=== PATIENT | male | born 1970 | race Caucasian/White ===

== ENCOUNTER 2019-04-04 14:34 | Emergency (ER) | payer OTHER ==
[2019-04-04 14:41] VITALS: TEMP 98.6
[2019-04-04] MEDS ORDERED: SODIUM CHLORIDE 0.9% 1,000 ML IV ONE (14:57)
--- NOTE | 2019-04-04 14:57 | ED ---
General Adult HPI - General Source: patient, EMS, RN notes reviewed, old records reviewed Mode of arrival: EMS Limitations: no limitations <Spike Cadena - Last Filed: 04/04/19 14:55> <Rl Lemus - Last Filed: 04/05/19 00:41> - General Chief complaint: Psychiatric Symptoms Stated complaint: Etoh Time Seen by Provider: 04/04/19 14:37 - History of Present Illness Initial comments: 48-year-old male presents for evaluation of alcohol intoxication and homicidal ideation. Patient was dropped off by his at [facility] for alcohol rehabilitation. Patient's is angry with his and states he would like to kill her. He denies suicidal ideation. He is clinically intoxicated at the time my evaluation. He does admit to drinking alcohol. He has no physical complaints. He was ejected from [facility] because he did not have his home medications. (Spike Cadena) - Related Data Allergies Allergy/AdvReac Type Severity Reaction Status Date / Time No Known Allergies Allergy Verified 04/04/19 15:29 Review of Systems ROS Other: All systems not noted in ROS Statement are negative. <Spike Cadena - Last Filed: 04/04/19 14:55> ROS Other: All systems not noted in ROS Statement are negative. <Rl Lemus - Last Filed: 04/05/19 00:41> ROS Statement: Those systems with pertinent positive or pertinent negative responses have been documented in the HPI. Past Medical History Past Medical History: Hypertension History of Any Multi-Drug Resistant Organisms: None Reported Additional Past Surgical History / Comment(s): eye surgery Past Psychological History: Anxiety, Depression Smoking Status: Never smoker Past Alcohol Use History: Abuse, Daily, Heavy Past Drug Use History: None Reported <Spike Cadena - Last Filed: 04/04/19 14:55> General Exam Limitations: no limitations General appearance: alert, in no apparent distress, appears intoxicated Head exam: Present: atraumatic, normocephalic Eye exam: Present: normal appearance, PERRL ENT exam: Present: normal exam Neck exam: Present: normal inspection. Absent: tenderness, meningismus Respiratory exam: Present: normal lung sounds bilaterally. Absent: respiratory distress, wheezes Cardiovascular Exam: Present: regular rate, normal rhythm GI/Abdominal exam: Present: soft. Absent: distended, tenderness Extremities exam: Present: normal inspection. Absent: normal capillary refill, pedal edema Neurological exam: Present: alert, oriented X3, CN II-XII intact. Absent: motor sensory deficit Psychiatric exam: Present: depressed, flat affect, homicidal ideation Skin exam: Present: warm, dry, intact. Absent: cyanosis, diaphoretic <Spike Cadena [place] - Last Filed: 04/04/19 14:55> General appearance: alert, in no apparent distress Head exam: Present: atraumatic, normocephalic, normal inspection Eye exam: Present: normal appearance, PERRL, EOMI. Absent: scleral icterus, conjunctival injection, periorbital swelling ENT exam: Present: normal exam, mucous membranes moist Neck exam: Present: normal inspection. Absent: tenderness, meningismus, lymphadenopathy Respiratory exam: Present: normal lung sounds bilaterally. Absent: respiratory distress, wheezes, rales, rhonchi, stridor Cardiovascular Exam: Present: regular rate, normal rhythm, normal heart sounds. Absent: systolic murmur, diastolic murmur, rubs, gallop, clicks GI/Abdominal exam: Present: soft, normal bowel sounds. Absent: distended, tenderness, guarding, rebound, rigid Extremities exam: Present: normal inspection, full ROM, normal capillary refill. Absent: tenderness, pedal edema, joint swelling, calf tenderness Back exam: Present: normal inspection Neurological exam: Present: alert, oriented X3, CN II-XII intact Psychiatric exam: Present: normal affect, normal mood Skin exam: Present: warm, dry, intact, normal color. Absent: rash <Rl Lemus - Last Filed: 04/05/19 00:41> Course <Rl Lemus - Last Filed: 04/05/19 00:41> Vital Signs 04/04/19 04/04/19 04/04/19 14:36 15:08 16:14 Temperature 98.6 F Pulse Rate 84 83 81 Respiratory 18 18 16 Rate Blood Pressure 162/111 149/107 151/94 O2 Sat by Pulse 97 95 95 Oximetry - Reevaluation(s) Reevaluation #1: 04/05/19 00:39 seen and evaluated by phych, ok for discharge (Rl Lemus) Reevaluation #2: 04/05/19 00:40 patient given ativan and discharge (Rl Lemus) Medical Decision Making <Rl Lemus - Last Filed: 04/05/19 00:41> - Medical Decision Making 48 male seen evaluated with psychiatry, patient can be discharged home currently. They with psychiatry here in the ER. Patient can be discharged home (Rl Lemus) - Lab Data Lab Results 04/04/19 Range/Units 16:10 Urine Opiates Screen Not Detected (NotDetected) Ur Oxycodone Screen Not Detected (NotDetected) Urine Methadone Screen Not Detected (NotDetected) Ur Propoxyphene Screen Not Detected (NotDetected) Ur Barbiturates Screen Not Detected (NotDetected) U Tricyclic Antidepress Not Detected (NotDetected) Ur Phencyclidine Scrn Not Detected (NotDetected) Ur Amphetamines Screen Not Detected (NotDetected) U Methamphetamines Scrn Not Detected (NotDetected) U Benzodiazepines Scrn Not Detected (NotDetected) Urine Cocaine Screen Not Detected (NotDetected) U Marijuana (THC) Screen Not Detected (NotDetected) Disposition <Spike Cadena - Last Filed: 04/04/19 14:55> Is patient prescribed a controlled substance at d/c from ED?: No <Rl Lemus - Last Filed: 04/05/19 00:41> Clinical Impression: Alcohol abuse Disposition: HOME SELF-CARE Condition: Fair Instructions (If sedation given, give patient instructions): Abuse of Alcohol (ED) Referrals: None,Stated [Primary Care Provider] - 1-2 days
[2019-04-04] MEDS ORDERED: FAMOTIDINE 20 MG/2 ML VIAL IV STA (15:54)
[2019-04-04 16:34] LABS: Amphetamine Screen,Urine Not Detected (NotDetected); Barbiturate Screen,Urine Not Detected (NotDetected); Benzodiazepines Screen,Urine Not Detected (NotDetected); Cocaine Screen,Urine Not Detected (NotDetected); Methadone Screen, Urine Not Detected (NotDetected); Opiate Screen,Urine Not Detected (NotDetected); Oxycodone Screen, Urine Not Detected (NotDetected); Phencyclidine Screen,Urine Not Detected (NotDetected); Tricyclic Antidepressant,Urine Not Detected (NotDetected); Urn Cannabinoid Scrn Not Detected (NotDetected)
[2019-04-04] MEDS ORDERED: LORazepam 2 MG/ML INJ IV STA (19:36)
[2019-04-05] MEDS ORDERED: LORazepam 1 MG TAB PO STA (00:34)
[2019-04-05 01:13] VITALS: BP 166/111; PULSE 90; RESP 18
== END 2019-04-05 01:11 | disposition home or self-care (01) ==
LOC: EC 14:34
DX: F10.129 Alcohol abuse with intoxication, unspecified (principal); R45.850 Homicidal ideations
CPT/HCPCS: 82075; 80306; 99285; 96374; 96375; 96376; 96361; J2060